=== PATIENT | female | born 1995 | race Caucasian/White ===

== ENCOUNTER 2018-10-22 12:10 | Observation (INO) | payer BC ==
[~2018-10-22] VITALS: Ht 157.5 cm; Wt 60.9 kg
[2018-10-22 12:41] VITALS: BP 105/65
== END 2018-10-22 15:38 | disposition home or self-care (01) ==
LOC: LDOP 12:10 → LDIP 13:40
PROVIDERS: ADMIT Obstetrics & Gynecology Maternal & Fetal Medicine; ATTEND Obstetrics & Gynecology Maternal & Fetal Medicine
DX: O26.893 Other specified pregnancy related conditions, third trimester (principal); R10.9 Unspecified abdominal pain; Z3A.36 36 weeks gestation of pregnancy
CPT/HCPCS: 59025; 87081; 89060; 99201; G0378; 87147; G0463; Q0114

== ENCOUNTER 2018-10-24 21:49 | Inpatient (IN) | payer BC ==
[~2018-10-24] VITALS: Ht 157.5 cm; Wt 61.8 kg
[2018-10-24] MEDS ORDERED: D5%-LACTATED RINGERS 1,000 ML IV SCH (22:46)
[2018-10-24] MEDS ORDERED: OXYTOCIN 30U/ 0.9% NaCL 500ML 500 ML IV ONE (22:46)
[2018-10-24 22:56] VITALS: BP 110/69
[2018-10-24] MEDS ORDERED: ONDANSETRON 2MG/ML, 2ML IVPush PRN (23:00)
[2018-10-24] MEDS ORDERED: FENTANYL PF 100 MCG/2ML IVPush PRN (23:00)
[2018-10-24] MEDS ORDERED: TERBUTALINE 1 MG/ML, 1ML SQ PRN (23:00)
[2018-10-24] MEDS ORDERED: PENICILLIN GK 5,000,000 UNITS in DEXTROSE 5% 100 ML IVPB ONE (23:00)
[2018-10-24] MEDS ORDERED: SODIUM CITRATE/CITRIC ACID 30 ML UDC PO PRN (23:00)
[2018-10-24] MEDS ORDERED: METOCLOPRAMIDE 5 MG/ML, 2ML IVPush PRN (23:00)
[2018-10-24] MEDS ORDERED: FENTANYL PF 100 MCG/2ML IV PRN (23:00)
[2018-10-24 23:05] LABS: BASOPHILS # (AUTO) 0.04 x10^3/uL (0-0.1); BASOPHILS % (AUTO) 0 % (0-1); EOSINOPHILS # (AUTO) 0.04 x10^3/uL (0-0.4); EOSINOPHILS % (AUTO) 0 % (1-7); LYMPHOCYTES # (AUTO) 2.63 x10^3/uL (1-3.4); LYMPHOCYTES % (AUTO) 23 % (22-44); MD NO; MEAN CORPUSCULAR HEMOGLOBIN 29.7 pg (27.0-34.8); MEAN CORPUSCULAR HGB CONC 34.1 g/dL (32.4-35.8); MEAN CORPUSCULAR VOLUME 87.2 fL (80-100); MEAN PLATELET VOLUME 7.9 fL (7.4-10.4); MONOCYTES # (AUTO) 0.65 x10^3/uL (0.2-0.8); MONOCYTES % (AUTO) 6 % (2-9); NEUTROPHILS # (AUTO) 7.92 x10^3/uL (1.8-6.8); NEUTROPHILS % (AUTO) 70 % (42-75); PLATELET COUNT 255 x10^3/uL (130-400); RED BLOOD COUNT 3.61 x10^6/uL (3.82-5.3); RED CELL DISTRIBUTION WIDTH 12.9 % (9.6-15.2)
[2018-10-24] MEDS ORDERED: LIDOCAINE 1%, 20ML ONE (23:08)
[2018-10-24] MEDS ORDERED: MISOPROSTOL 200 MCG TABLET ONE (23:09)
[2018-10-24] MEDS ORDERED: OXYTOCIN 30U/ 0.9% NaCL 500ML 500 ML ONE (23:09)
[2018-10-24] MEDS: LACTATED RINGERS 1,000 ML IV SCH (23:13)
[2018-10-24] MEDS ORDERED: FENTANYL/BUPIV./NS/PF 250 ML EPIDCONT SCH (23:18)
[2018-10-25] MEDS ORDERED: BUPIVACAINE 0.25% ONE ×3 (00:46→18:06)
[2018-10-25] MEDS ORDERED: FENTANYL/BUPIV./NS/PF 250 ML EPIDCONT ONE ×2 (00:47→18:32)
[2018-10-25] MEDS ORDERED: CALCIUM CARBONATE 500 MG TAB.CHEW ONE ×2 (01:22→19:56)
[2018-10-25] MEDS: CALCIUM CARBONATE 500 MG TAB.CHEW PO PRN ×2 (01:24→19:58)
[2018-10-25] MEDS ORDERED: OXYTOCIN 30U/ 0.9% NaCL 500ML 500 ML IV PRN (02:30)
[2018-10-25] MEDS: PENICILLIN GK 2,500,000 UNITS in DEXTROSE 5% 100 ML IVPB SCH ×6 (03:02→23:27)
[2018-10-25] MEDS ORDERED: DIPHENHYDRAMINE 25 MG CAPSULE ONE ×2 (05:14→05:18)
[2018-10-25] MEDS ORDERED: DIPHENHYDRAMINE 50 MG/ML, 1ML IVPush PRN (05:30)
[2018-10-25] MEDS: LACTATED RINGERS 1,000 ML IV SCH (12:09)
[2018-10-25] MEDS ORDERED: FENTANYL PF 100 MCG/2ML ONE ×3 (15:49→18:05)
[2018-10-25] MEDS ORDERED: OXYTOCIN 30U/ 0.9% NaCL 500ML 500 ML ONE (21:28)
[2018-10-26] MEDS ORDERED: MISOPROSTOL 200 MCG TABLET PR PRN (00:30)
[2018-10-26] MEDS: OXYTOCIN 30U/ 0.9% NaCL 500ML 500 ML IV SCH ×3 (00:30→20:30)
[2018-10-26] MEDS ORDERED: ONDANSETRON 2MG/ML, 2ML IV PRN (00:30)
[2018-10-26] MEDS ORDERED: ACETAMINOPHEN 325 MG TABLET PO PRN (00:30)
[2018-10-26] MEDS ORDERED: OXYcodone IR 5MG TABLET PO PRN (00:30)
[2018-10-26] MEDS ORDERED: CARBOPROST TROMETHAMINE 250 MCG/ML, 1ML IM PRN (00:30)
[2018-10-26] MEDS ORDERED: METHYLERGONOVINE 0.2 MG/ML IM PRN (00:30)
[2018-10-26] MEDS ORDERED: OXYTOCIN 30U/ 0.9% NaCL 500ML 500 ML ONE (01:21)
[2018-10-26] MEDS ORDERED: IBUPROFEN 600 MG TABLET ONE (01:21)
[2018-10-26] MEDS: IBUPROFEN 600 MG TABLET PO PRN ×3 (01:23→15:39)
[2018-10-26 02:45] VITALS: BP 104/64
[2018-10-26 06:15] VITALS: BP 109/81
[2018-10-26] MEDS: OXYcodone/APAP 5/325MG TABLET PO PRN ×2 (06:23→15:16)
[2018-10-26] MEDS ORDERED: DIPHENHYDRAMINE 25 MG CAPSULE PO PRN ×2 (06:30)
[2018-10-26] MEDS ORDERED: DIPHENHYDRAMINE/ZINC CRM 2%, 30GM TP PRN (07:30)
[2018-10-26 08:18] LABS: MD YES; MEAN CORPUSCULAR HEMOGLOBIN 28.4 pg (27.0-34.8); MEAN CORPUSCULAR HGB CONC 32.6 g/dL (32.4-35.8); MEAN CORPUSCULAR VOLUME 87.2 fL (80-100); PLATELET COUNT 258 x10^3/uL (130-400); RED BLOOD COUNT 3.97 x10^6/uL (3.82-5.3); RED CELL DISTRIBUTION WIDTH 13.1 % (9.6-15.2)
[2018-10-26 08:33] VITALS: BP 116/75
[2018-10-26] MEDS: DOCUSATE 100 MG CAPSULE PO PRN ×2 (09:20→19:30)
[2018-10-26] MEDS: PRENATAL VIT/IRON/FA 1 EACH TABLET PO SCH (09:20)
[2018-10-26 10:21] LABS: <PLATELET ESTIMATE> ADEQUATE; <PLT MORPHOLOGY> NORMAL PLT MORPH; <RBC MORPHOLOGY> NORMAL; EOS#(MANUAL) 0.38 x10^3/uL (0.0-0.4); EOS% (MANUAL) 2 % (1-7); LYMPH#(MANUAL) 1.52 x10^3/uL (1-3.4); LYMPHS% (MANUAL) 8 % (22-44); MONOS#(MANUAL) 0.38 x10^3/uL (0.3-2.7); MONOS% (MANUAL) 2 % (2-9); SEG#(MANUAL) 16.72 x10^3/uL (1.8-6.8); SEGS% (MANUAL) 88 % (42-75)
[2018-10-26 12:30] VITALS: BP 103/70
[2018-10-26 16:35] VITALS: BP 110/76
[2018-10-26] MEDS: HYDROCORTISONE CRM 1%, 30GM TP PRN (16:48)
[2018-10-26 19:30] VITALS: BP 113/73
[2018-10-26] MEDS: DIPHENHYDRAMINE 50 MG CAPSULE PO PRN (20:03)
[2018-10-27 00:15] VITALS: BP 112/74
[2018-10-27] MEDS ORDERED: DIPH,PERTUSS(ACELL),TET VAC/PF NC IM-VACC ONE (01:00)
[2018-10-27] MEDS: DIPHENHYDRAMINE 50 MG CAPSULE PO PRN ×2 (04:42→15:53)
[2018-10-27 05:02] VITALS: BP 108/71
[2018-10-27] MEDS: OXYTOCIN 30U/ 0.9% NaCL 500ML 500 ML IV SCH ×2 (06:30→16:30)
[2018-10-27] MEDS: PRENATAL VIT/IRON/FA 1 EACH TABLET PO SCH (07:30)
[2018-10-27] MEDS: IBUPROFEN 600 MG TABLET PO PRN ×3 (07:30→22:35)
[2018-10-27] MEDS: DOCUSATE 100 MG CAPSULE PO PRN ×2 (07:30→22:36)
[2018-10-27] MEDS: HYDROCORTISONE CRM 1%, 30GM TP PRN (07:30)
[2018-10-27 08:00] VITALS: BP 124/75
[2018-10-27] MEDS: SILVER SULF. CRM 1% , 25GM TP PRN (15:53)
[2018-10-27] MEDS: OXYcodone/APAP 5/325MG TABLET PO PRN ×2 (15:53→20:23)
[2018-10-27 20:55] VITALS: BP 99/65
[2018-10-28] MEDS: SILVER SULF. CRM 1% , 25GM TP PRN (00:41)
[2018-10-28] MEDS: OXYTOCIN 30U/ 0.9% NaCL 500ML 500 ML IV SCH ×2 (02:30→12:30)
[2018-10-28 09:00] VITALS: BP 110/71
[2018-10-28] MEDS: PRENATAL VIT/IRON/FA 1 EACH TABLET PO SCH (09:04)
[2018-10-28] MEDS: DOCUSATE 100 MG CAPSULE PO PRN (09:05)
[2018-10-28] MEDS ORDERED: SILVER SULF. CRM 1%, 400GM TP PRN (12:30)
[2018-10-28] MEDS: IBUPROFEN 600 MG TABLET PO PRN (13:42)
[2018-10-28] MEDS: OXYcodone/APAP 5/325MG TABLET PO PRN (13:42)
[2018-10-28] MEDS ORDERED: IBUP200T49 PO (15:41)
[2018-10-28] MEDS ORDERED: DOCU-131 PO (15:43)
[2018-10-28] MEDS ORDERED: SILV20CR13 TP (15:54)
== END 2018-10-28 17:20 | disposition home or self-care (01) | DRG 807 ==
LOC: LDOP 21:49 → LDIP 22:40 → 2NW 10-26 02:21
PROVIDERS: ADMIT Obstetrics & Gynecology Maternal & Fetal Medicine; ATTEND Obstetrics & Gynecology Maternal & Fetal Medicine
PROC: 10H07YZ Insertion of Other Device into Products of Conception, Via Natural or Artificial Opening (ICD-10-PCS; 2018-10-25)
PROC: 10E0XZZ Delivery of Products of Conception, External Approach (ICD-10-PCS; principal; 2018-10-26)
PROC: 3E0R3BZ Introduction of Anesthetic Agent into Spinal Canal, Percutaneous Approach (ICD-10-PCS; 2018-10-26)
PROC: 00HU33Z Insertion of Infusion Device into Spinal Canal, Percutaneous Approach (ICD-10-PCS; 2018-10-26)
DX: O42.913 Preterm premature rupture of membranes, unspecified as to length of time between rupture and onset of labor, third trimester (principal); Z37.0 Single live birth; O99.824 Streptococcus B carrier state complicating childbirth; F32.9 Major depressive disorder, single episode, unspecified; F41.9 Anxiety disorder, unspecified; O99.72 Diseases of the skin and subcutaneous tissue complicating childbirth; L50.6 Contact urticaria; O99.344 Other mental disorders complicating childbirth; Z3A.36 36 weeks gestation of pregnancy; Z91.040 Latex allergy status; Z88.8 Allergy status to other drugs, medicaments and biological substances
CPT/HCPCS: 36415; J7121; 85025; 86850; 86900; 89060; G0378; J2540; J3010; J1200; J2590; J7120; Q0114; Q0163